=== PATIENT | female | born 1965 | race Caucasian/White ===

== ENCOUNTER → 2021-08-07 | Outpatient (CLI) | payer BC ==
[2021-08-07 07:21] LABS: HEMOGLOBIN 13.3 gm/dl (12.3-15.3); RED BLOOD COUNT 4.31 M/UL (4.00-5.10); WHITE BLOOD COUNT 4.3 K/UL (4.5-11.0)
[2021-08-07 07:52] LABS: BUN/CREATININE RATIO 20 (0-10)
[2021-08-08 08:15] LABS: THYROXINE (T4) 9.1 ug/dL (4.5-12.0); VITAMIN D, 25-HYDROXY 32.7 ng/mL (30.0-100.0)
== END ==
LOC: LAB 06:51
PROVIDERS: Nurse Practitioner Family
DX: Z13.1 Encounter for screening for diabetes mellitus (principal); E78.5 Hyperlipidemia, unspecified; E55.9 Vitamin D deficiency, unspecified; R53.83 Other fatigue
CPT/HCPCS: 36415; 80053; 80061; 81001; 82150; 83036; 83690; 84436; 84443; 84480; 85025

== ENCOUNTER 2021-11-19 11:36 | Emergency (ER) | payer BC | END 2021-11-19 13:26 | disposition home or self-care (01) | LOC: ER1 11:36 | DX: S00.03XA Contusion of scalp, initial encounter (principal); Z87.442 Personal history of urinary calculi; Z90.49 Acquired absence of other specified parts of digestive tract; W19.XXXA Unspecified fall, initial encounter | CPT/HCPCS: 70450; 72170; 99284 ==